=== PATIENT | female | born 1955 | race Hispanic/Latino ===

== ENCOUNTER 2021-10-28 05:41 | Emergency (ER) | payer MEDICARE ==
[2021-10-28] MEDS ORDERED: ONDANSETRON 4 MG/2 ML INJ IV ONE (06:35)
[2021-10-28] MEDS ORDERED: MORPHINE 4 MG/1 ML INJ IV ONE (06:35)
--- NOTE | 2021-10-28 06:40 | Emergency Department Report ---
ED Eye Problem HPI - General Chief complaint: Eye Problems Stated complaint: SUPER GLUE IN LEFT EYE Time Seen by Provider: 10/28/21 06:15 Source: patient Mode of arrival: Ambulatory Limitations: No Limitations - History of Present Illness Initial comments: Patient is 66 years old female with history of CABG, hypertension hyperlipidemia and diabetes. Patient presented to the ER complaining of left eye pain and redness. Patient stated that she accidentally took her superglue instead of her regular eyedrops. Patient eye irrigated in the ER patient is able to open her eyes now with difficulty and stated that she is having blurry vision and significantly decreased vision in the left eye. External ocular movement is intact. Right eye is not affected. No other complaint. MD chief complaint: eye pain, eye redness, vision change -: Sudden Onset Description: sudden Location: left eye If Injury: chemical exposure Eye Symptoms: burning, redness, pain, foreign body sensation, decreased vision, blurry vision Severity: moderate Severity scale (0 -10): 6 If Pain, Quality: throbbing Consistency: constant Associated Symptoms: none Treatments Prior to Arrival: irrigated eye - Related Data Allergies Allergy/AdvReac Type Severity Reaction Status Date / Time baclofen AdvReac Unknown Verified 10/28/21 07:36 naproxen AdvReac Nausea Verified 10/28/21 07:36 ED Review of Systems ROS: Stated complaint: SUPER GLUE IN LEFT EYE Other details as noted in HPI Comment: All other systems reviewed and negative Constitutional: denies: chills, fever Eyes: eye pain, eye discharge, vision change Respiratory: denies: cough, shortness of breath, SOB with exertion, SOB at rest Cardiovascular: denies: chest pain, palpitations Gastrointestinal: denies: abdominal pain, nausea, vomiting, diarrhea, constipation, hematemesis, melena, hematochezia Musculoskeletal: denies: back pain Neurological: denies: headache, weakness, numbness, paresthesias, confusion, abnormal gait ED Physical Exam - General Limitations: No Limitations General appearance: alert, in no apparent distress - Head Head exam: Present: atraumatic, normocephalic, normal inspection - Eye Eye exam: Present: PERRL, EOMI, conjunctival injection. Absent: nystagmus, periorbital swelling, periorbital tenderness Pupils: Present: normal accommodation - ENT ENT exam: Present: normal exam, normal orophraynx, mucous membranes moist - Neck Neck exam: Present: normal inspection, full ROM. Absent: tenderness, meningismus - Respiratory Respiratory exam: Present: normal lung sounds bilaterally - Cardiovascular Cardiovascular Exam: Present: regular rate, normal rhythm, normal heart sounds - GI/Abdominal GI/Abdominal exam: Present: soft, normal bowel sounds. Absent: distended, tenderness, guarding, rebound, rigid, organomegaly, mass, bruit, pulsatile mass, hernia - Back Exam Back exam: Present: normal inspection, full ROM. Absent: CVA tenderness (R), CVA tenderness (L), muscle spasm, paraspinal tenderness, vertebral tenderness - Neurological Exam Neurological exam: Present: alert, oriented X3, CN II-XII intact - Psychiatric Psychiatric exam: Present: normal mood - Skin Skin exam: Present: warm, intact, normal color ED Course Vital Signs 10/28/21 10/28/21 10/28/21 05:43 07:24 07:26 Temperature 98.9 F Pulse Rate 85 Respiratory 16 18 Rate Blood Pressure 161/90 O2 Sat by Pulse 100 100 Oximetry 10/28/21 07:58 Temperature Pulse Rate Respiratory 24 Rate Blood Pressure O2 Sat by Pulse Oximetry ED Medical Decision Making - Lab Data Result diagrams: 10/28/21 06:42 10/28/21 06:42 - Medical Decision Making Patient is 66 years old female with history of CABG, hypertension hyperlipidemia and diabetes. Patient presented to the ER complaining of left eye pain and redness. Patient stated that she accidentally took her superglue instead of her regular eyedrops. Patient eye irrigated in the ER patient is able to open her eyes now with difficulty and stated that she is having blurry vision and significantly decreased vision in the left eye. External ocular movement is intact. Right eye is not affected. No other complaint. Patient received morphine and Dilaudid for pain. I discussed the patient with Dr. Avila, customs inspector at [facility]. She accepted the patient to be transferred to [facility] emergency department for further management. Critical Care Time: Yes Critical care time in (mins) excluding proc time.: 35 Critical care attestation.: If time is entered above; I have spent that time in minutes in the direct care of this critically ill patient, excluding procedure time. ED Disposition Clinical Impression: Chemical conjunctivitis of left eye Disposition: 51 HOSPICE/MEDICAL FACILITY Is pt being admited?: No Condition: Stable
[2021-10-28 06:58] LABS: Basophils # (Auto) 0.1 K/mm3 (0.0-0.1); Basophils % (Auto) 0.8 % (0.0-1.8); Eosinophils # (Auto) 0.1 K/mm3 (0.0-0.4); Eosinophils % (Auto) 1.5 % (0.0-4.3); Hemoglobin 14.9 gm/dl (10.1-14.3); Lymphocytes % (Auto) 13.6 % (13.4-35.0); Mean Corpuscular HGB Conc 35 % (30-34); Mean Corpuscular Volume 95 fl (79-97); Monocytes # (Auto) 0.5 K/mm3 (0.0-0.8); Monocytes % (Auto) 7.6 % (0.0-7.3); Platelet Count 201 K/mm3 (140-440); Red Cell Distribution Width 12.4 % (13.2-15.2)
[2021-10-28 07:31] LABS: BUN/Creatinine Ratio 21; Blood Urea Nitrogen 17 mg/dL (7-17); Calcium 10.4 mg/dL (8.4-10.2); Hemolysis Index 30
[2021-10-28] MEDS ORDERED: HYDROmorphone 1 MG/1 ML INJ IV ONE (07:55)
[2021-10-28 09:01] VITALS: BP 159/78
== END 2021-10-28 08:58 | disposition short-term general hospital (02) ==
LOC: ED 05:41
DX: H10.212 Acute toxic conjunctivitis, left eye (principal); I10 Essential (primary) hypertension; E11.9 Type 2 diabetes mellitus without complications; Z88.6 Allergy status to analgesic agent; Z88.8 Allergy status to other drugs, medicaments and biological substances
CPT/HCPCS: 36415; 80048; 85025; 96374; 96375; 99291; J1170; J2270; J2405; 99285